=== PATIENT | female | born 1950 | race Caucasian/White ===

== ENCOUNTER 2025-05-06 04:30 | Inpatient (IN) | payer MEDICARE ==
[2025-05-06] MEDS ORDERED: Ondansetron PF 4 MG/2 ML Vial ONE ×2 (04:53→08:09)
[2025-05-06 04:54] LABS: #Basophils 0.03 10x3/uL (0.0-0.2); #Eosinophils 0.05 10x3/uL (0.0-0.5); #Monocytes 0.94 10x3/uL (0.0-1.1); #Neutrophils 7.08 10x3/uL (1.5-8.4); %Basophils 0.3 % (0.0-2.0); %Eosinophils 0.6 % (0.0-6.0); %Lymphocytes 9.6 % (18.0-47.0); %Monocytes 10.4 % (0.0-10.0); %Neutrophils 78.5 % (40.0-75.0); Hematocrit 36.2 % (34.9-44.5); Hemoglobin 12.7 g/dL (12.0-15.5); Mean Corpuscular Hemoglobin 35.3 pg (27.0-33.0); Mean Corpuscular Volume 100.6 fL (81.6-98.3); Platelet Count 289 10x3/uL (150-450); Red Blood Cell (RBC) Count 3.60 10x6/uL (3.90-5.03); White Blood Cell (WBC) Count 9.02 10x3/uL (3.5-10.5)
[2025-05-06 05:06] LABS: Glucose, Urine (Dipstick) Normal (Negative); Leukocyte 25 (Negative); Protein, Urine (Dipstick) 30 mg/dl (Neg-Trace); Specific Gravity, Urine 1.020 (1.005-1.030)
[2025-05-06 05:12] LABS: ALT (SGPT) 18 U/L (Less than 34); AST (SGOT) 21 U/L (11-34); Albumin 3.7 g/dL (3.1-4.5); Alkaline Phosphatase 65 U/L (40-110); Anion Gap 22 mmol/L (10-20); BUN (Urea Nitrogen) 11 mg/dL (9.8-20.1); Bilirubin, Total 0.5 mg/dL (0.3-1.2); Calc. Creatinine Clearance 0 mL/min (70-130); Calcium 9.3 mg/dL (7.8-10.44); Carbon Dioxide 20 mmol/L (23-31); Chloride 94 mmol/L (98-107); Globulin 3.3 g/dL (2.4-3.5); Glucose 120 mg/dL (83-110); Lipase 11 U/L (8-78); Potassium 4.0 mmol/L (3.5-5.1); Sodium 132 mmol/L (136-145)
[2025-05-06 05:22] LABS: Troponin I 0.012 ng/mL (< 0.028)
[2025-05-06 05:28] LABS: Bacteria/HPF 2+ HPF (None Seen); CAUTI Indications for Culture Dysuria,urgency,freq; Oval Fat Bodies/HPF 1+ HPF (None Seen); RBC/HPF 0-3 HPF (0-3)
[2025-05-06 05:30] LABS: Urine Culture Reflex No No
[2025-05-06] MEDS ORDERED: Cefepime 2 GM VIAL ONE (06:08)
[2025-05-06] MEDS ORDERED: Iopamidol 370 76% 100 ML VIAL ONE (09:45)
[2025-05-06] MEDS ORDERED: Iopamidol 300 61% 100 ML VIAL FS ONE (09:47)
[2025-05-06] MEDS ORDERED: Electrolyte Replacement Protocol 1 EACH FS SCH (12:15)
[2025-05-06 12:32] LABS: Magnesium 1.7 mg/dL (1.6-2.6)
[2025-05-06 14:40] VITALS: BMI 19.7
[2025-05-06] MEDS: Pantoprazole 40 MG VIAL IVP SCH ×2 (15:57→22:01)
[2025-05-06] MEDS: Magnesium 2 GM/50 ML(in water) 2 GM in Premix 1 BAG IVPB SCH (15:57)
[2025-05-06] MEDS: Ondansetron PF 4 MG/2 ML Vial IVP PRN (16:25)
[2025-05-07 04:12] LABS: #Basophils 0.06 10x3/uL (0.0-0.2); #Eosinophils 0.26 10x3/uL (0.0-0.5); #Monocytes 0.83 10x3/uL (0.0-1.1); #Neutrophils 5.93 10x3/uL (1.5-8.4); %Basophils 0.7 % (0.0-2.0); %Eosinophils 3.2 % (0.0-6.0); %Lymphocytes 13.4 % (18.0-47.0); %Monocytes 10.1 % (0.0-10.0); %Neutrophils 72.4 % (40.0-75.0); Hematocrit 31.7 % (34.9-44.5); Hemoglobin 11.1 g/dL (12.0-15.5); Mean Corpuscular Hemoglobin 36.4 pg (27.0-33.0); Mean Corpuscular Volume 103.9 fL (81.6-98.3); Platelet Count 246 10x3/uL (150-450); Red Blood Cell (RBC) Count 3.05 10x6/uL (3.90-5.03); White Blood Cell (WBC) Count 8.20 10x3/uL (3.5-10.5)
[2025-05-07] MEDS: Lactulose 20 GM (30 mL) UDCUP PO SCH (04:40)
[2025-05-07 04:48] LABS: Anion Gap 16 mmol/L (10-20); BUN (Urea Nitrogen) 6 mg/dL (9.8-20.1); Calc. Creatinine Clearance 57 mL/min (70-130); Calcium 8.3 mg/dL (7.8-10.44); Carbon Dioxide 23 mmol/L (23-31); Chloride 101 mmol/L (98-107); Glucose 84 mg/dL (83-110); Magnesium 1.9 mg/dL (1.6-2.6); Potassium 4.7 mmol/L (3.5-5.1); Sodium 135 mmol/L (136-145)
[2025-05-07] MEDS: Guaifenesin DM 100-10/5 ML UDCUP PO PRN (07:14)
[2025-05-07] MEDS: Enoxaparin 40 MG (0.4 mL) SYRINGE SC SCH (08:28)
[2025-05-07] MEDS: Magnesium 2 GM/50 ML(in water) 2 GM in Premix 1 BAG IVPB SCH (08:28)
[2025-05-07] MEDS ORDERED: Pantoprazole 40 MG VIAL IVP SCH (09:00)
[2025-05-07] MEDS ORDERED: PROPOFOL 20 ML ONE (13:56)
[2025-05-07] MEDS ORDERED: Lidocaine 2% MPF 10 ML AMP (For Epidural Use) ONE (13:57)
[2025-05-07] MEDS ORDERED: SUGAMMADEX SODIUM 200 MG/2 ML VIAL ONE (14:00)
[2025-05-07] MEDS: diphenhydrAMINE 50 MG/ML VIAL IVP SCH (21:37)
[2025-05-08] MEDS: GUAIFENESIN SF SOLN 200 MG/10 ML UDCUP PO SCH ×2 (02:37→20:08)
[2025-05-08 05:54] LABS: ALT (SGPT) 11 U/L (Less than 34); AST (SGOT) 14 U/L (11-34); Albumin 2.7 g/dL (3.1-4.5); Alkaline Phosphatase 51 U/L (40-110); Anion Gap 16 mmol/L (10-20); BUN (Urea Nitrogen) 6 mg/dL (9.8-20.1); Bilirubin, Total 0.4 mg/dL (0.3-1.2); Calc. Creatinine Clearance 78 mL/min (70-130); Calcium 8.1 mg/dL (7.8-10.44); Carbon Dioxide 19 mmol/L (23-31); Chloride 102 mmol/L (98-107); Globulin 2.9 g/dL (2.4-3.5); Glucose 133 mg/dL (83-110); Magnesium 1.6 mg/dL (1.6-2.6); Potassium 4.3 mmol/L (3.5-5.1); Sodium 133 mmol/L (136-145)
[2025-05-08 05:55] LABS: Hematocrit 31.0 % (34.9-44.5); Hemoglobin 10.7 g/dL (12.0-15.5); Mean Corpuscular Hemoglobin 35.4 pg (27.0-33.0); Mean Corpuscular Volume 102.6 fL (81.6-98.3); Platelet Count 220 10x3/uL (150-450); Red Blood Cell (RBC) Count 3.02 10x6/uL (3.90-5.03); White Blood Cell (WBC) Count 5.48 10x3/uL (3.5-10.5)
[2025-05-08 06:16] LABS: Anisocytosis MODERATE=16-30 cells (100X) (0-5/hpf); Giant Platelets SLIGHT HPF (0-5); MDiff Complete? YES; Macrocytosis MODERATE=16-30 cells (100X) (0-5/hpf); Ovalocytes SLIGHT = 2-5 cells (100X) (0-1/hpf); Platelet Adequacy Comment Appears Adequate; Poikilocytosis SLIGHT = 6-15 cells (100X) (0-5/hpf)
[2025-05-08] MEDS: Magnesium 2 GM/50 ML(in water) 2 GM in Premix 1 BAG IVPB SCH (09:15)
[2025-05-08] MEDS: Mupirocin 1 GM TUBE TP SCH (20:04)
[2025-05-09 03:36] LABS: Hematocrit 30.5 % (34.9-44.5); Hemoglobin 10.3 g/dL (12.0-15.5); Mean Corpuscular Hemoglobin 35.0 pg (27.0-33.0); Mean Corpuscular Volume 103.7 fL (81.6-98.3); Platelet Count 191 10x3/uL (150-450); Red Blood Cell (RBC) Count 2.94 10x6/uL (3.90-5.03); White Blood Cell (WBC) Count 6.24 10x3/uL (3.5-10.5)
[2025-05-09 04:08] LABS: Anion Gap 13 mmol/L (10-20); BUN (Urea Nitrogen) 10 mg/dL (9.8-20.1); Calc. Creatinine Clearance 74 mL/min (70-130); Calcium 8.5 mg/dL (7.8-10.44); Carbon Dioxide 23 mmol/L (23-31); Chloride 102 mmol/L (98-107); Glucose 145 mg/dL (83-110); Potassium 4.7 mmol/L (3.5-5.1); Sodium 133 mmol/L (136-145)
[2025-05-10] MEDS: ALPRAZolam 0.25 MG TAB PO PRN (14:42)
[2025-05-11 04:09] LABS: Hematocrit 30.1 % (34.9-44.5); Hemoglobin 10.7 g/dL (12.0-15.5); Mean Corpuscular Hemoglobin 36.8 pg (27.0-33.0); Mean Corpuscular Volume 103.4 fL (81.6-98.3); Platelet Count 186 10x3/uL (150-450); Red Blood Cell (RBC) Count 2.91 10x6/uL (3.90-5.03); White Blood Cell (WBC) Count 7.21 10x3/uL (3.5-10.5)
[2025-05-11 04:24] LABS: Anion Gap 10 mmol/L (10-20); BUN (Urea Nitrogen) 11 mg/dL (9.8-20.1); Calc. Creatinine Clearance 87 mL/min (70-130); Calcium 8.1 mg/dL (7.8-10.44); Carbon Dioxide 26 mmol/L (23-31); Chloride 104 mmol/L (98-107); Glucose 135 mg/dL (83-110); Potassium 4.1 mmol/L (3.5-5.1); Sodium 136 mmol/L (136-145)
[2025-05-11] MEDS ORDERED: Bupivacaine HCl 0.5%/Epinephrine 1:200,000/PF 30 ml Vial ONE (12:10)
[2025-05-11] MEDS ORDERED: Lidocaine 1% w/Epinephrine 1:200K 30 ML VIAL ONE (12:10)
[2025-05-11] MEDS ORDERED: KETAMINE 100 MG/ML (5ML VIAL) ONE (12:11)
[2025-05-11] MEDS ORDERED: Ondansetron PF 4 MG/2 ML Vial ONE (12:13)
[2025-05-11] MEDS ORDERED: PROPOFOL 20 ML ONE (12:13)
[2025-05-12 03:51] LABS: Anion Gap 13 mmol/L (10-20); BUN (Urea Nitrogen) 12 mg/dL (9.8-20.1); Calc. Creatinine Clearance 86 mL/min (70-130); Calcium 8.1 mg/dL (7.8-10.44); Carbon Dioxide 25 mmol/L (23-31); Chloride 100 mmol/L (98-107); Glucose 115 mg/dL (83-110); Potassium 3.9 mmol/L (3.5-5.1); Sodium 134 mmol/L (136-145)
[2025-05-12 06:03] LABS: Hematocrit 31.5 % (34.9-44.5); Hemoglobin 11.1 g/dL (12.0-15.5); Mean Corpuscular Hemoglobin 35.2 pg (27.0-33.0); Mean Corpuscular Volume 100.0 fL (81.6-98.3); Platelet Count 162 10x3/uL (150-450); Red Blood Cell (RBC) Count 3.15 10x6/uL (3.90-5.03); White Blood Cell (WBC) Count 14.84 10x3/uL (3.5-10.5)
[2025-05-12 10:59] VITALS: BMI 23.8
[2025-05-12 14:53] LABS: Magnesium 1.4 mg/dL (1.6-2.6)
[2025-05-12] MEDS: Magnesium 2 GM/50 ML(in water) 2 GM in Premix 1 BAG IVPB SCH (17:50)
[2025-05-13 06:29] LABS: Anion Gap 10 mmol/L (10-20); BUN (Urea Nitrogen) 12 mg/dL (9.8-20.1); Calc. Creatinine Clearance 82 mL/min (70-130); Calcium 7.7 mg/dL (7.8-10.44); Carbon Dioxide 30 mmol/L (23-31); Chloride 99 mmol/L (98-107); Glucose 104 mg/dL (83-110); Hematocrit 34.2 % (34.9-44.5); Hemoglobin 12.0 g/dL (12.0-15.5); Magnesium 2.2 mg/dL (1.6-2.6); Mean Corpuscular Hemoglobin 34.9 pg (27.0-33.0); Mean Corpuscular Volume 99.4 fL (81.6-98.3); Platelet Count 121 10x3/uL (150-450); Potassium 4.1 mmol/L (3.5-5.1); Red Blood Cell (RBC) Count 3.44 10x6/uL (3.90-5.03); Sodium 135 mmol/L (136-145); White Blood Cell (WBC) Count 13.76 10x3/uL (3.5-10.5)
[2025-05-13 06:32] LABS: #Basophils Less than 0.03 10x3/uL (0.0-0.2); #Eosinophils Less than 0.03 10x3/uL (0.0-0.5); #Monocytes 1.17 10x3/uL (0.0-1.1); #Neutrophils 11.32 10x3/uL (1.5-8.4); %Basophils 0.1 % (0.0-2.0); %Eosinophils 0.0 % (0.0-6.0); %Lymphocytes 8.4 % (18.0-47.0); %Monocytes 8.5 % (0.0-10.0); %Neutrophils 82.3 % (40.0-75.0)
[2025-05-14 03:35] LABS: Hematocrit 28.7 % (34.9-44.5); Hemoglobin 10.1 g/dL (12.0-15.5); Mean Corpuscular Hemoglobin 35.9 pg (27.0-33.0); Mean Corpuscular Volume 102.1 fL (81.6-98.3); Platelet Count 86 10x3/uL (150-450); Red Blood Cell (RBC) Count 2.81 10x6/uL (3.90-5.03); White Blood Cell (WBC) Count 9.20 10x3/uL (3.5-10.5)
[2025-05-14 03:36] LABS: #Basophils Less than 0.03 10x3/uL (0.0-0.2); #Eosinophils 0.19 10x3/uL (0.0-0.5); #Monocytes 1.15 10x3/uL (0.0-1.1); #Neutrophils 6.65 10x3/uL (1.5-8.4); %Basophils 0.1 % (0.0-2.0); %Eosinophils 2.1 % (0.0-6.0); %Lymphocytes 12.6 % (18.0-47.0); %Monocytes 12.5 % (0.0-10.0); %Neutrophils 72.3 % (40.0-75.0)
[2025-05-14 03:39] LABS: Anion Gap 12 mmol/L (10-20); BUN (Urea Nitrogen) 11 mg/dL (9.8-20.1); Calc. Creatinine Clearance 93 mL/min (70-130); Calcium 7.3 mg/dL (7.8-10.44); Carbon Dioxide 28 mmol/L (23-31); Chloride 99 mmol/L (98-107); Glucose 117 mg/dL (83-110); Potassium 3.1 mmol/L (3.5-5.1); Sodium 136 mmol/L (136-145)
[2025-05-14] MEDS: Potassium Chloride 20 MEQ in Premix 1 BAG IVPB SCH (04:54)
[2025-05-14] MEDS: Magnesium 2 GM/50 ML(in water) 2 GM in Premix 1 BAG IVPB SCH (09:40)
[2025-05-14] MEDS ORDERED: Simethicone Chewable 80 MG TAB PO PRN (10:04)
[2025-05-14 11:01] VITALS: BP 147/83
[2025-05-14] MEDS: Simethicone Chewable 80 MG TAB PO SCH (11:07)
[2025-05-14] MEDS: Bisacodyl 10 MG SUPP PR SCH (11:52)
[2025-05-14 12:26] VITALS: TEMP 98.2
[2025-05-14 13:46] LABS: Potassium 3.6 mmol/L (3.5-5.1)
== END 2025-05-14 14:47 | DRG 12 ==
LOC: CSHERS 04:30 → CSHERHOLD 11:32 → CSHTELE 14:32 → CSHICU 05-08 15:56
PROVIDERS: ADMIT Internal Medicine; ATTEND Internal Medicine
PROC: 0B110F4 Bypass Trachea to Cutaneous with Tracheostomy Device, Open Approach (ICD-10-PCS; 2025-05-06)
PROC: 3E03329 Introduction of Other Anti-infective into Peripheral Vein, Percutaneous Approach (ICD-10-PCS; 2025-05-06)
PROC: 0T9B70Z Drainage of Bladder with Drainage Device, Via Natural or Artificial Opening (ICD-10-PCS; 2025-05-06)
PROC: 0JH60WZ Insertion of Totally Implantable Vascular Access Device into Chest Subcutaneous Tissue and Fascia, Open Approach (ICD-10-PCS; principal; 2025-05-11)
PROC: 02HV33Z Insertion of Infusion Device into Superior Vena Cava, Percutaneous Approach (ICD-10-PCS; 2025-05-11)
PROC: B5181ZA Fluoroscopy of Superior Vena Cava using Low Osmolar Contrast, Guidance (ICD-10-PCS; 2025-05-11)
PROC: 0DH63UZ Insertion of Feeding Device into Stomach, Percutaneous Approach (ICD-10-PCS; 2025-05-11)
PROC: 3E0G76Z Introduction of Nutritional Substance into Upper GI, Via Natural or Artificial Opening (ICD-10-PCS; 2025-05-11)
DX: C32.1 Malignant neoplasm of supraglottis (principal); N39.0 Urinary tract infection, site not specified; C14.0 Malignant neoplasm of pharynx, unspecified; I10 Essential (primary) hypertension; F10.90 Alcohol use, unspecified, uncomplicated; F41.8 Other specified anxiety disorders; K64.8 Other hemorrhoids; J42 Unspecified chronic bronchitis; I25.10 Atherosclerotic heart disease of native coronary artery without angina pectoris; R13.12 Dysphagia, oropharyngeal phase; C12 Malignant neoplasm of pyriform sinus; Z98.890 Other specified postprocedural states; Z79.891 Long term (current) use of opiate analgesic; Z79.2 Long term (current) use of antibiotics; Z79.899 Other long term (current) drug therapy; Z66 Do not resuscitate; G83.9 Paralytic syndrome, unspecified; Z87.891 Personal history of nicotine dependence; K29.70 Gastritis, unspecified, without bleeding; R06.1 Stridor; B96.20 Unspecified Escherichia coli [E. coli] as the cause of diseases classified elsewhere; D64.9 Anemia, unspecified
CPT/HCPCS: 36415; 51702; 70491; 71045; 71275; 74018; 74177; 76705; 80048; 80053; 81001; 83690; 83735; 84100; 84484; 85025; 85027; 93005; 94760; 94762; 96361; 96365; 96375; 96376; A6258; B4087; C1788; J0692; J1100; J1200; J1642; J1650; J2060; J2250; J2270; J2405; J2470; J2704; J3010; J3475; J3480; J7030; J7120; J7620; Q9967